=== PATIENT | female | born 1995 | race American Indian/Alaskan Native ===

== ENCOUNTER 2020-07-14 08:23 | Emergency (ER) | payer MEDICAID ==
[2020-07-14 08:33] VITALS: BP 120/75
[2020-07-14] MEDS ORDERED: KETOROLAC 30 MG/1 ML INJ IM ONE (12:35)
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
== END 2020-07-14 13:13 | disposition home or self-care (01) ==
LOC: ED 08:23
DX: M25.571 Pain in right ankle and joints of right foot (principal); M54.31 Sciatica, right side; M54.6 Pain in thoracic spine; G89.29 Other chronic pain; F41.9 Anxiety disorder, unspecified; F17.200 Nicotine dependence, unspecified, uncomplicated; Z98.890 Other specified postprocedural states; Z79.899 Other long term (current) drug therapy; Z88.0 Allergy status to penicillin; Z88.1 Allergy status to other antibiotic agents; Z88.8 Allergy status to other drugs, medicaments and biological substances
CPT/HCPCS: 96372; 99282; J1885

== ENCOUNTER 2020-08-12 21:41 | Emergency (ER) | payer OTHER, MEDICAID ==
[2020-08-12 22:03] VITALS: BP 116/71
[2020-08-13] MEDS ORDERED: KETOROLAC 30 MG/1 ML INJ IM ONE (00:12)
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
== END 2020-08-13 03:55 | disposition home or self-care (01) ==
LOC: ED 21:41
DX: S39.012A Strain of muscle, fascia and tendon of lower back, initial encounter (principal); M19.90 Unspecified osteoarthritis, unspecified site; F41.9 Anxiety disorder, unspecified; F17.200 Nicotine dependence, unspecified, uncomplicated; Z79.899 Other long term (current) drug therapy; Z91.040 Latex allergy status; Z88.0 Allergy status to penicillin; Z88.6 Allergy status to analgesic agent; Z88.1 Allergy status to other antibiotic agents; V49.49XA Driver injured in collision with other motor vehicles in traffic accident, initial encounter; Y93.89 Activity, other specified; Y92.488 Other paved roadways as the place of occurrence of the external cause; Y99.8 Other external cause status
CPT/HCPCS: 96372; 99282; J1885

== ENCOUNTER 2020-11-11 07:37 | Emergency (ER) | payer MEDICAID, OTHER ==
[2020-11-11 07:46] VITALS: BP 104/61
== END 2020-11-11 09:00 | disposition left against medical advice (07) ==
LOC: ED 07:37
DX: M54.9 Dorsalgia, unspecified (principal); Z53.21 Procedure and treatment not carried out due to patient leaving prior to being seen by health care provider